=== PATIENT | female | born 1965 | race Caucasian/White ===

== ENCOUNTER 2017-04-28 17:32 | Emergency (ER) | payer BC, OTHER ==
[2017-04-28 17:44] VITALS: BP 172/89
[2017-04-28] MEDS ORDERED: Ibuprofen 800 MG Tab PO ONE (17:48)
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
== END 2017-04-28 18:47 | disposition home or self-care (01) ==
LOC: JD.ED 17:32
DX: T22.112A Burn of first degree of left forearm, initial encounter (principal); Z88.2 Allergy status to sulfonamides; X12.XXXA Contact with other hot fluids, initial encounter; Y92.89 Other specified places as the place of occurrence of the external cause
CPT/HCPCS: 99283

== ENCOUNTER 2019-01-20 01:08 | Emergency (ER) | payer BC, OTHER ==
[2019-01-20 01:21] VITALS: BP 145/72
--- NOTE | 2019-01-20 01:26 | EDM.PDOC ---
ED HPI GENERAL MEDICAL PROBLEM - General Chief Complaint: Back Pain or Injury Stated Complaint: MUSCLE CRAMPS Time Seen by Provider: 01/20/19 01:26 - History of Present Illness INITIAL COMMENTS - FREE TEXT/NARRATIVE: 52-year-old female presents emergency room with muscle cramps. This is been getting worse over the last couple of days. Seems to be worse in her back but involves her extremities. At times she has headaches currently she does not. The patient has weaned herself off Vicoprofen has not used this for several weeks she still on some muscle relaxants. She has chronic back problems. Patient has not done anything that would make this worse. Back Pain Score (Numeric/FACES): 10 - Related Data Allergies Allergy/AdvReac Type Severity Reaction Status Date / Time latex Allergy Rash Verified 01/20/19 01:15 Sulfa (Sulfonamide Allergy Rash Verified 01/20/19 01:15 Antibiotics) contrast iv dye Allergy Hives Uncoded 01/20/19 01:16 Home Meds: Home Meds Methocarbamol 750 mg PO ASDIRECTED PRN 04/28/17 [History] Gabapentin [Neurontin] 1 tab PO TID 01/20/19 [History] HYDROcodone/Ibuprofen [Hydrocodone-Ibuprofen 7.5-200] 1 tab PO Q6H PRN 01/20/19 [History] Lisinopril 1 tab PO DAILY 01/20/19 [History] tiZANidine [Zanaflex] 1 tab PO BEDTIME 01/20/19 [History] Past Medical History Cardiovascular History: Reports: Other (See Below) Other Cardiovascular History: getting on high side of blood pressure but is not on meds yet Gastrointestinal History: Reports: Other (See Below) Other Gastrointestinal History: irritable bowel and adjusts diet accordingly Musculoskeletal History: Reports: Back Pain, Chronic - Past Surgical History HEENT Surgical History: Reports: Adenoidectomy, Tonsillectomy Social & Family History - Caffeine Use Caffeine Use: Reports: Soda - Living Situation & Occupation Living situation: Reports: Occupation: Employed ED ROS GENERAL - Review of Systems Review Of Systems: See Below Constitutional: Reports: No Symptoms HEENT: Reports: No Symptoms Respiratory: Reports: No Symptoms Cardiovascular: Reports: No Symptoms Endocrine: Reports: No Symptoms GI/Abdominal: Reports: No Symptoms : Reports: No Symptoms Musculoskeletal: Reports: Muscle Stiffness, Other (Muscle spasm) Skin: Reports: No Symptoms Neurological: Reports: No Symptoms Psychiatric: Reports: No Symptoms ED EXAM,LOWER BACK PAIN/INJURY - Physical Exam Exam: See Below Exam Limited By: No Limitations General Appearance: Alert, No Apparent Distress Ears: Normal External Exam, Normal Canal, Hearing Grossly Normal, Normal TMs Nose: Normal Inspection, Normal Mucosa, No Blood Throat/Mouth: Normal Inspection, Normal Lips, Normal Gums, Normal Oropharynx, Normal Voice, No Airway Compromise, Other (Dentures in place) Head: Atraumatic, Normocephalic Neck: Normal Inspection, Supple, Non-Tender. No: Lymphadenopathy (L), Lymphadenopathy (R) Respiratory/Chest: No Respiratory Distress, Lungs Clear, Normal Breath Sounds Cardiovascular: Regular Rate, Rhythm, No Edema, No Murmur GI/Abdominal: Normal Bowel Sounds, Soft, Non-Tender Extremities: Normal Inspection, Other (She has some muscle tenderness) Course - Vital Signs Last Recorded V/S: Last Vital Signs Temp 36.9 C 01/20/19 01:18 Pulse 92 01/20/19 01:18 Resp 18 01/20/19 01:18 BP 145/72 H 01/20/19 01:18 Pulse Ox 100 01/20/19 01:18 - Orders/Labs/Meds Orders: Active Orders 24 hr Category Date Time Status Lactated Ringers [Ringers, Lactated] 1,000 ml Med 01/20/19 02:33 Active IV .BOLUS Medication Orders Lactated Ringer's (Ringers, Lactated) 1,000 mls @ 999 mls/hr IV .BOLUS ONE Stop: 01/20/19 03:33 Last Admin: 01/20/19 02:40 Dose: 999 mls/hr Labs: Laboratory Tests 01/20/19 01/20/19 Range/Units 01:45 01:45 Sodium 139 (136-145) mEq/L Potassium 4.0 (3.5-5.1) mEq/L Chloride 101 (98-107) mEq/L Carbon Dioxide 23 (21-32) mEq/L Anion Gap 19.0 H (5-15) BUN 25 H (7-18) mg/dL Creatinine 1.2 H (0.55-1.02) mg/dL Est Cr Clr Drug Dosing 50.75 mL/min Estimated GFR (MDRD) 47 (>60) mL/min BUN/Creatinine Ratio 20.8 H (14-18) Glucose 101 (74-106) mg/dL Calcium 9.4 (8.5-10.1) mg/dL Magnesium 2.0 (1.8-2.4) mg/dl Creatine Kinase 113 (26-192) U/L Meds: Medications Generic Name Dose Route Start Last Admin Trade Name Yara PRN Reason Stop Dose Admin Lactated Ringer's 1,000 mls @ 999 mls/hr 01/20/19 02:33 01/20/19 02:40 Ringers, Lactated IV 01/20/19 03:33 999 mls/hr .BOLUS ONE Administration - Re-Assessments/Exams Free Text/Narrative Re-Assessment/Exam: 01/20/19 03:21 CPKs normal electrolytes are normal she has some renal insufficiency but it looks like she's in prerenal state and her anion gap is elevated she was started on liter of LR and feels better with this at this time. 01/20/19 03:39 The remaining fluids are in patient feels better we will discharge home Departure - Departure Time of Disposition: 03:40 Disposition: Home, Self-Care 01 Clinical Impression: Muscle cramps, Dehydration - Discharge Information Referrals: Yahaira Martinez PA-C [Primary Care Provider] - Forms: ED Department Discharge Additional Instructions: Return to the emergency room with any questions problems worsening symptoms. Follow-up with her regular provider. Push lots of fluids as we discussed. Quit smoking - My Orders Last 24 Hours: My Active Orders 01/20/19 02:33 Lactated Ringers [Ringers, Lactated] 1,000 ml IV .BOLUS - Assessment/Plan Last 24 Hours: My Active Orders 01/20/19 02:33 Lactated Ringers [Ringers, Lactated] 1,000 ml IV .BOLUS
[2019-01-20] MEDS ORDERED: Lactated Ringers 1,000 ML IV ONE (02:33)
== END 2019-01-20 03:45 | disposition home or self-care (01) ==
LOC: JD.ED 01:08
DX: E86.0 Dehydration (principal); Z91.040 Latex allergy status; Z88.2 Allergy status to sulfonamides; Z91.041 Radiographic dye allergy status; Z79.899 Other long term (current) drug therapy
CPT/HCPCS: 36415; 80048; 82550; 83735; 96360; 99284; J7120; 99283

== ENCOUNTER 2019-01-24 11:50 | Emergency (ER) | payer BC, OTHER ==
[2019-01-24 12:09] VITALS: BP 144/94
[2019-01-24] MEDS ORDERED: Sodium Chloride 0.9% 10 ML Syringe FLUSH PRN (12:36)
[2019-01-24] MEDS ORDERED: Sodium Chloride 0.9% 1,000 ML IV SCH ×2 (12:45→14:00)
[2019-01-24] MEDS ORDERED: cefTRIAXone 1 GM in Sodium Chloride 0.9% 100 ML IV ONE (13:42)
[2019-01-24] MEDS ORDERED: Ketorolac 30 MG/ML SDV IVPUSH ONE (13:43)
--- NOTE | 2019-01-24 13:53 | EDM.PDOC ---
ED HPI GENERAL MEDICAL PROBLEM - General Chief Complaint: Back Pain or Injury Stated Complaint: SEVERE DEHYDRATION Time Seen by Provider: 01/24/19 12:36 Source of Information: Reports: Patient, RN Notes Reviewed History Limitations: Reports: No Limitations - History of Present Illness INITIAL COMMENTS - FREE TEXT/NARRATIVE: Patient is a 53-year-old female who presents to the ED for the evaluation of bilateral lower back pain. The patient states that she was seen in the ER on , for dehydration and muscle cramping, and received 1 L of IV fluids with some lab work. She states initially she felt better, however at this point in time she still feels weak with no energy, she tried to go to work last night, but was very tired. She states that she was not checked for urine infection on . She feels urinary frequency and urgency but no dysuria. She further notes that she has had her menses for past 8 days. She is perimenopausal and does not believe that she has had heavy bleeding, it is just been prolonged this time around. She has not taken any pain medications for this. 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) Other Treatments ACADEMIC SUPPORT DIRECTOR: none Lower Back Pain Score (Numeric/FACES): 8 - Related Data Allergies Allergy/AdvReac Type Severity Reaction Status Date / Time latex Allergy Rash Verified 01/20/19 01:15 Sulfa (Sulfonamide Allergy Rash Verified 01/20/19 01:15 Antibiotics) contrast iv dye Allergy Hives Uncoded 01/20/19 01:16 Home Meds: Home Meds Methocarbamol 750 mg PO ASDIRECTED PRN 04/28/17 [History] Gabapentin [Neurontin] 1 tab PO TID 01/20/19 [History] Lisinopril 1 tab PO DAILY 01/20/19 [History] tiZANidine [Zanaflex] 1 tab PO BEDTIME 01/20/19 [History] Ciprofloxacin HCl [Cipro] 500 mg PO BID #20 tablet 01/24/19 [Rx] Past Medical History Cardiovascular History: Reports: Other (See Below) Other Cardiovascular History: getting on high side of blood pressure but is not on meds yet Gastrointestinal History: Reports: Other (See Below) Other Gastrointestinal History: irritable bowel and adjusts diet accordingly Musculoskeletal History: Reports: Back Pain, Chronic - Past Surgical History HEENT Surgical History: Reports: Adenoidectomy, Tonsillectomy Social & Family History - Tobacco Use Smoking Status *Q: Current Every Day Smoker Years of Tobacco use: 30 Packs/Tins Daily: 1 - Caffeine Use Caffeine Use: Reports: Soda - Recreational Drug Use Recreational Drug Use: No - Living Situation & Occupation Living situation: Reports: Occupation: Employed ED ROS GENERAL - Review of Systems Review Of Systems: See Below Constitutional: Reports: Fever, Chills HEENT: Reports: No Symptoms Respiratory: Reports: No Symptoms Cardiovascular: Reports: No Symptoms Endocrine: Reports: No Symptoms GI/Abdominal: Reports: No Symptoms : Reports: Frequency, Irregular Menses (perimenopausal), Urgency. Denies: Dysuria Musculoskeletal: Reports: Back Pain (bilateral pack pain) Skin: Reports: No Symptoms Neurological: Reports: No Symptoms Psychiatric: Reports: No Symptoms Hematologic/Lymphatic: Reports: No Symptoms ED EXAM,LOWER BACK PAIN/INJURY - Physical Exam Exam: See Below Exam Limited By: No Limitations General Appearance: Alert, WD/WN, No Apparent Distress Eye Exam: Bilateral Eye: Normal Inspection Respiratory/Chest: No Respiratory Distress, Lungs Clear, Normal Breath Sounds, No Accessory Muscle Use, Chest Non-Tender Cardiovascular: Normal Peripheral Pulses, Regular Rate, Rhythm, No Murmur GI/Abdominal: Normal Bowel Sounds, Soft, Non-Tender, No Distention, No Mass Back Exam: Normal Inspection, Full Range of Motion, CVA Tenderness (L), CVA Tenderness (R) Extremities: Normal Inspection, Normal Capillary Refill Neurological: Alert, Normal Mood/Affect, Normal Dorsiflexion, Normal Plantar Flexion, Normal Gait, Normal Reflexes, Oriented x 3 Psychiatric: Normal Affect, Normal Mood Skin Exam: Warm, Dry, Intact, Normal Color, No Rash Course - Vital Signs Last Recorded V/S: Last Vital Signs Temp 97.1 F 01/24/19 12:07 Pulse 88 01/24/19 12:07 Resp 20 01/24/19 12:07 BP 144/94 H 01/24/19 12:07 Pulse Ox 100 01/24/19 12:07 - Orders/Labs/Meds Orders: Active Orders 24 hr Category Date Time Status Peripheral IV Care [RC] . DIRECTED Care 01/24/19 12:36 Ordered CULTURE URINE [RM] Routine Lab 01/24/19 13:34 Ordered Ketorolac [Toradol] Med 01/24/19 13:43 Once 30 mg IVPUSH ONETIME ONE Sodium Chloride 0.9% [Normal Saline] 1,000 ml Med 01/24/19 12:45 Ordered IV ASDIRECTED Sodium Chloride 0.9% [Saline Flush] Med 01/24/19 12:36 Ordered 10 ml FLUSH ASDIRECTED PRN cefTRIAXone [Rocephin] 1 gm Med 01/24/19 13:42 Ordered Sodium Chloride 0.9% [Normal Saline] 100 ml IV ONETIME Peripheral IV Insertion Adult [OM.PC] Routine Oth 01/24/19 12:36 Ordered Medication Orders Sodium Chloride (Normal Saline) 1,000 mls @ 999 mls/hr IV ASDIRECTED NATHALIA Last Admin: 01/24/19 12:49 Dose: 999 mls/hr Ceftriaxone Sodium 1 gm/ (Sodium Chloride) 100 mls @ 200 mls/hr IV ONETIME ONE Stop: 01/24/19 14:11 Sodium Chloride (Saline Flush) 10 ml FLUSH ASDIRECTED PRN PRN Reason: Keep Vein Open Last Admin: 01/24/19 12:49 Dose: 10 ml Labs: Laboratory Tests 01/24/19 01/24/19 Range/Units 12:14 12:47 WBC 15.61 H (3.98-10.04) K/mm3 RBC 5.24 H (3.98-5.22) M/mm3 Hgb 15.2 (11.2-15.7) gm/L Hct 45.4 H (34.1-44.9) % MCV 86.6 (79.4-94.8) fl MCH 29.0 (25.6-32.2) pg MCHC 33.5 (32.2-35.5) g/dl RDW Std Deviation 47.2 H (36.4-46.3) fL Plt Count 281 (182-369) K/mm3 MPV 9.3 L (9.4-12.3) fl Neutrophils % (Manual) 77 H (40-60) % Band Neutrophils % 0 (0-10) % Lymphocytes % (Manual) 15 L (20-40) % Atypical Lymphs % 0 % Monocytes % (Manual) 6 (2-10) % Eosinophils % (Manual) 2 (0.7-5.8) % Basophils % (Manual) 0 L (0.1-1.2) Platelet Estimate Adequate RBC Morph Comment Normal Urine Color Yellow (Yellow) Urine Appearance Clear (Clear) Urine pH 7.0 (5.0-8.0) Ur Specific Hardy 1.015 (1.005-1.030) Urine Protein 1+ H (Negative) Urine Glucose (UA) Negative (Negative) Urine Ketones Negative (Negative) Urine Occult Blood 2+ H (Negative) Urine Nitrite Negative (Negative) Urine Bilirubin Negative (Negative) Urine Urobilinogen 0.2 (0.2-1.0) Ur Leukocyte Esterase 1+ H (Negative) Urine RBC 20-30 H (0-5) /hpf Urine WBC 10-20 H (0-5) /hpf Ur Squamous Epith Cells 0-5 (0-5) /hpf Urine Bacteria Few (FEW) /hpf Urine Mucus Few (FEW) /hpf Meds: Medications Generic Name Dose Route Start Last Admin Trade Name Freq PRN Reason Stop Dose Admin Sodium Chloride 1,000 mls @ 999 mls/hr 01/24/19 12:45 01/24/19 12:49 Normal Saline IV 999 mls/hr ASDIRECTED NATHALIA Administration Ceftriaxone Sodium 1 gm/ 100 mls @ 200 mls/hr 01/24/19 13:42 Sodium Chloride IV 01/24/19 14:11 ONETIME ONE Sodium Chloride 10 ml 01/24/19 12:36 01/24/19 12:49 Saline Flush FLUSH 10 ml ASDIRECTED PRN Administration Keep Vein Open Discontinued Medications Generic Name Dose Route Start Last Admin Trade Name Wallyq PRN Reason Stop Dose Admin Ketorolac Tromethamine 30 mg 01/24/19 13:43 Toradol IVPUSH 01/24/19 13:44 ONETIME ONE - Re-Assessments/Exams Free Text/Narrative Re-Assessment/Exam: 01/24/19 13:48 Patient presents to the ED for the evaluation of feelings of dehydration and lateral back pain. A UA was obtained at time of triage. I did start IV fluids , ordered a CBC, CMP for further evaluation. Her white count was elevated at 15 ,000, and her UA did demonstrate 20/30 RBCs, 10-20 white blood cells, and 1+ leuk esterase. As she is on her menses I'm not so worried about the red blood cells in the urine. This is likely due to a pyelonephritis at this time, I have ordered 1 g Rocephin to be given, and 30 mg Toradol for further pain relief. The patient wishes not to have imaging done at this time. I will place her on a course of oral antibiotics after her IV antibiotics have been completed. 01/24/19 14:56 Serum sodium was decreased at 130, the 2 bags of IV NS should help correct this. The patient states that she is feeling better after the IV fluids. She will be discharged home with general recommendations and a prescription for antibiotics. Departure - Departure Time of Disposition: 14:50 Disposition: Home, Self-Care 01 Condition: Fair Clinical Impression: UTI (urinary tract infection) Qualifiers: Urinary tract infection type: acute pyelonephritis Qualified Code(s): N10 - Acute pyelonephritis - Discharge Information *PRESCRIPTION DRUG MONITORING PROGRAM REVIEWED*: No *COPY OF PRESCRIPTION DRUG MONITORING REPORT IN PATIENT BHARATH: No Instructions: Pyelonephritis, Adult, [id number] Referrals: Yahaira Martinez PA-C [Primary Care Provider] - Additional Instructions: You have been evaluated in the ED today for your bilateral back pain. Your white blood cell count was mildly elevated at 15,000, and your urinalysis did have some white blood cells in it, which is suggestive of a Pyelonephritis ( kidney infection). You have been given a dose of IV antibiotics in the ER today , and provided with a prescription for oral antibiotics, these have been sent to the clinic pharmacy, please take as directed until gone. Please do not take the Zanaflex (tizanidine) with the ciprofloxacin, as the ciprofloxacin does have the possibility to increase the concentration of the Zanaflex in your system, which could lead to respiratory depression and increased feeling of sedation. You may take 600 mg ibuprofen every 6 hours or 500 mg Tylenol every 6 hours as needed for further pain relief. Please do not take more than 3200 mg ibuprofen or 4000 mg of Tylenol in a 24 hour time span. Recommend that you follow up with your primary care provider after the course of antibiotics is done to make sure that the UTI is clearing. Your urinalysis was sent for culture as well, to make sure that an appropriate antibiotic is picked. You will be called if you should need a change in your antibiotics. Please return to the ED if your symptoms should change or worsen. - My Orders Last 24 Hours: My Active Orders 01/24/19 12:36 Peripheral IV Care [RC] . DIRECTED Sodium Chloride 0.9% [Saline Flush] 10 ml FLUSH ASDIRECTED PRN Peripheral IV Insertion Adult [OM.PC] Routine 01/24/19 12:45 Sodium Chloride 0.9% [Normal Saline] 1,000 ml IV ASDIRECTED 01/24/19 13:34 CULTURE URINE [RM] Routine 01/24/19 13:42 cefTRIAXone [Rocephin] 1 gm Sodium Chloride 0.9% [Normal Saline] 100 ml IV ONETIME - Assessment/Plan Last 24 Hours: My Active Orders 01/24/19 12:36 Peripheral IV Care [RC] . DIRECTED Sodium Chloride 0.9% [Saline Flush] 10 ml FLUSH ASDIRECTED PRN Peripheral IV Insertion Adult [OM.PC] Routine 01/24/19 12:45 Sodium Chloride 0.9% [Normal Saline] 1,000 ml IV ASDIRECTED 01/24/19 13:34 CULTURE URINE [RM] Routine 01/24/19 13:42 cefTRIAXone [Rocephin] 1 gm Sodium Chloride 0.9% [Normal Saline] 100 ml IV ONETIME
== END 2019-01-24 15:10 | disposition home or self-care (01) ==
LOC: JD.ED 11:50
DX: N10 Acute pyelonephritis (principal); F17.210 Nicotine dependence, cigarettes, uncomplicated; Z91.040 Latex allergy status; Z88.2 Allergy status to sulfonamides; Z91.041 Radiographic dye allergy status; Z79.899 Other long term (current) drug therapy
CPT/HCPCS: 36415; 80048; 81001; 85007; 85027; 87086; 87088; 87186; 96361; 96365; 96375; 99284; J0696; J1885; J7030; J7040; 99283

== ENCOUNTER 2021-12-04 01:55 | Emergency (ER) | payer BC, OTHER ==
[2021-12-04 02:09] VITALS: BP 135/82; PULSE 85
== END 2021-12-04 02:40 | disposition home or self-care (01) ==
LOC: JD.ED 01:55
DX: S60.032A Contusion of left middle finger without damage to nail, initial encounter (principal); S60.042A Contusion of left ring finger without damage to nail, initial encounter; Z88.2 Allergy status to sulfonamides; Z91.041 Radiographic dye allergy status; Z91.040 Latex allergy status; Z88.8 Allergy status to other drugs, medicaments and biological substances; Z72.0 Tobacco use; W23.1XXA Caught, crushed, jammed, or pinched between stationary objects, initial encounter
CPT/HCPCS: 73130-26-LT; 73130-LT; 99282; 99283

== ENCOUNTER 2023-11-30 21:48 | Emergency (ER) | payer OTHER ==
[2023-11-30] MEDS: Sodium Chloride 0.9% 10 ML Syringe FLUSH PRN (22:30)
[2023-11-30] MEDS: Piperacillin/Tazobactam 4.5 GM in Sodium Chloride 0.9% 100 ML IV STA (22:30)
[2023-11-30] MEDS: Lactated Ringers 2,000 ML IV SCH (22:30)
[2023-11-30 22:41] LABS: HEMATOCRIT 41.1 % (37.0-47.0); HEMOGLOBIN 13.8 gm/dl (12.0-16.0); MEAN CORPUSCULAR HEMOGLOBIN 31.6 pg (28.0-32.0); MEAN CORPUSCULAR HGB CONC 33.6 g/dl (32.0-36.0); MEAN CORPUSCULAR VOLUME 94.1 fl (83.0-99.0); MEAN PLATELET VOLUME 10.1 fl (9.4-12.3); PLATELET COUNT,PLT 184 K/mm3 (150-400); RED BLOOD CELL COUNT 4.37 M/mm3 (4.10-5.30); WHITE BLOOD CELL COUNT,WBC 10.63 K/mm3 (3.9-11.3)
[2023-11-30 23:12] LABS: ALBUMIN 3.6 g/dl (3.4-5.0); ANION GAP 17.6 (5-15); BILIRUBIN TOTAL 0.6 mg/dL (0.2-1.0); BUN/CREATININE RATIO 12.2 (14-18); CALCIUM 8.6 mg/dL (8.5-10.1); CREATININE 0.9 mg/dL (0.55-1.02); EST CRCL DRUG DOSING (CG) 63.78 mL/min; PROTEIN TOTAL,TP 7.3 g/dl (6.4-8.2)
[2023-11-30 23:19] LABS: BAND PERCENT MAN 0 % (0-10); BASOPHILS PERCENT MAN 0 (0.1-1.2); EOSINOPHILS PERCENT MAN 2 % (0.7-5.8); LYMPHOCYTES % ATYPICAL MANUAL 0 %; LYMPHOCYTES PERCENT MAN 25 % (20-40); MONOCYTES PERCENT MAN 1 % (2-10); PLATELET COUNT ESTIMATE ADEQUATE
[2023-11-30 23:29] LABS: LACTIC ACID 2.2 mmol/L (0.4-2.0)
[2023-11-30 23:33] LABS: POTASSIUM,K 3.6 mEq/L (3.5-5.1)
[2023-11-30 23:36] LABS: APPEARANCE,URINE SLT CLOUDY (Clear); BILIRUBIN,URINE NEGATIVE (Negative); COLOR,URINE YELLOW (Yellow); GLUCOSE,URINE NEGATIVE (Negative); KETONES,URINE NEGATIVE (Negative); LEUKOCYTE ESTERASE,URINE 1+ (Negative); NITRITE,URINE POSITIVE (Negative); OCCULT BLOOD,URINE 2+ (Negative); PROTEIN,URINE 2+ (Negative); UROBILINOGEN,URINE 0.2 (0.2-1.0)
[2023-11-30 23:45] LABS: BACTERIA,URINE MANY /hpf (FEW); EPITHELIAL CELLS,URINE 0-5 /hpf (0-5); MUCUS,URINE NOT SEEN /hpf (FEW); WBC CLUMPS,URINE FEW /hpf (NOT SEEN); WBC,URINE 20-30 /hpf (0-5)
[2023-12-01 01:10] VITALS: PULSE 88
[2023-12-01 03:06] VITALS: BP 135/73
== END 2023-12-01 03:03 | disposition home or self-care (01) ==
LOC: JD.ED 21:48
DX: A41.9 Sepsis, unspecified organism (principal); N10 Acute pyelonephritis; Z91.040 Latex allergy status; Z88.2 Allergy status to sulfonamides; Z91.041 Radiographic dye allergy status; Z88.8 Allergy status to other drugs, medicaments and biological substances; Z79.899 Other long term (current) drug therapy
CPT/HCPCS: 36415; 71045; 74176; 80053; 81001; 83605; 83690; 85007; 85027; 87040; 87154; 93005; 96365; 99284; J2543; J3490; J7120; 87077; 87186; 99285